=== PATIENT | female | born 1945 | race Caucasian/White ===

== ENCOUNTER 2019-10-23 10:11 | Outpatient (CLI) | payer OTHER, SELFPAY ==
--- NOTE | ~2019-10-23 | MM_ITS ---
EXAMINATION: MM screening [facility] w [facility] HISTORY: Screening mammogram TECHNIQUE: Craniocaudal and mediolateral oblique 3-D tomosynthesis images were obtained and synthetic 2-D images were generated. CAD analysis was submitted and interpreted. COMPARISON: Comparison to multiple prior studies sequentially, with oldest reviewed study dated 09/12. BREAST PARENCHYMAL COMPOSITION: There are scattered areas of fibroglandular density. FINDINGS: There is no evidence of suspicious mass, calcification, or architectural distortion to sugg est malignancy in either breast. There has been no suspicious interval change. IMPRESSION: 1. No mammographic evidence of malignancy. 2. Recommend routine screening mammography in one year. BI-RADS Category 1: Negative Reviewed, dictated and finalized at location A.
== END 2019-10-23 10:12 | disposition home or self-care (01) ==
LOC: ANHIMG 10:14
PROVIDERS: PCP Emergency Medicine; Visit Provider Emergency Medicine
DX: Z12.31 Encounter for screening mammogram for malignant neoplasm of breast (principal)
CPT/HCPCS: 77063; 77067

== ENCOUNTER 2019-12-12 08:08 | Outpatient (CLI) | payer OTHER, SELFPAY ==
[2019-12-12 08:44] LABS: Alanine Aminotransferase 15 U/L (4-35); Albumin Level 4.2 g/dL (3.5-5.1); Alkaline Phosphatase 111 U/L (38-126); Aspartate Amino Transferase 19 U/L (14-36); Bilirubin,Total 0.6 mg/dL (0.2-1.3); Blood Urea Nitrogen 17 mg/dL (7-17); Calcium 9.3 mg/dL (8.4-10.2); Carbon Dioxide 30 mmol/L (22-30); Chloride 99 mmol/L (98-107); Cholesterol 172 mg/dL (0-200); Estimated Glomerular Filt Rate 55; Glucose 114 mg/dL (65-105); HDL Direct 47 mg/dL; Potassium 3.4 mmol/L (3.4-5.0); Sodium 136 mmol/L (137-145); Triglycerides 133 mg/dL (<150)
[2019-12-12 08:55] LABS: LDL Cholesterol Direct 93 mg/dL
[2019-12-16 13:26] LABS: Vitamin D 1,25 (OH)2 Total 23 pg/mL (18-72); Vitamin D2 1,25 (OH)2 <8 pg/mL; Vitamin D3 1,25 (OH)2 23 pg/mL
== END 2019-12-12 08:09 | disposition home or self-care (01) ==
PROVIDERS: PCP Emergency Medicine; Visit Provider Emergency Medicine
DX: E78.5 Hyperlipidemia, unspecified (principal); E55.9 Vitamin D deficiency, unspecified
CPT/HCPCS: 36415; 80053; 80061; 82652

== ENCOUNTER 2020-05-23 19:03 | Inpatient (IN) | payer OTHER, SELFPAY ==
[2020-05-23] VITALS (27 sets, daily range): BP systolic 92–140; BP diastolic 44–65; PULSE 70–95; RESP 17–24; TEMP 36.4–38.8; O2SAT 89–100; BMI 38.4
--- NOTE | ~2020-05-23 | XR_ITS ---
EXAMINATION: XR chest 1V portable DATE: 05/23/2020 19:56 INDICATION: COVID positive presenting with fever and weakness TECHNIQUE: frontal view of the chest was obtained. COMPARISON: Chest radiograph dated 10/31/2013 FINDINGS: Patchy airspace opacities throughout the left lung concerning for pneumonia. No definitive airspace o pacities in the right lung. No pleural effusion or pneumothorax. The cardiomediastinal silhouette is within normal limits for AP technique. Visualized bones and soft tissues are unremarkable. IMPRESSION: 1. Airspace opacities throughout the left lung concerning for pneumonia. Reviewed, dictated and finalized at location A. [employer]
--- NOTE | ~2020-05-23 | CT_ITS ---
EXAMINATION: CT brain wo con DATE: 05/24/2020 11:02 INDICATION: Syncope TECHNIQUE: Computed tomography (CT) of the head was performed without intravenous contrast. The dose- length product was 605.33 mGy-cm. Automated exposure control and iterative reconstruction technique w ere employed. COMPARISON: None FINDINGS: Generalized atrophy. There are scattered moderate periventricular and subcortical white mat ter changes, most likely related to small vessel ischemic disease (microangiopathy). No ventriculomeg juhi or midline shift. There is intracranial atherosclerosis. Midline sagittal images demonstrate a no rmal corpus callosum and craniovertebral junction. Scant mucosal thickening ethmoid sinuses. Mastoids are pneumatized. No depressed skull fractures. IMPRESSION: 1. No acute intracranial abnormality. 2: Chronic age-related findings. Reviewed, dictated and finalized at location A. FICATION OPERATOR
--- NOTE | 2020-05-23 19:28 | ECG_ITS ---
Measurements Intervals [place] Rate: 78 P: 36 ND: 171 QRS: -38 QRSD: 93 T: 6 QT: 376 QTc: 430 Interpretive Statements SINUS RHYTHM LEFT AXIS DEVIATION LOW QRS VOLTAGE IN LIMB LEADS BORDERLINE T WAVE ABNORMALITY- INFERIOR LEADS BASELINE WANDER- I, II, AVR, AVL BORDERLINE ECG Electronically Signed On 05-24-2020 7:37:30 ELECTRIC METER READER by Scott Rojo D.O.
--- NOTE | 2020-05-23 19:30 | ED.WEAKNESS ---
HPI - Weakness General Chief complaint: Weakness Stated complaint: weakness, possible covid Time Seen by Provider: 05/23/20 19:21 History of Present Illness HPI Narrative: Brought in by EMS from home for generalized weakness. She has been feeling ill for about the past 5 days. Symptoms include cough, SOB, fever, nausea, poor PO intake. She had outpatient COVID test collected, but n result yet. Today She has been confused and weak, She fell down and was not able to stand on her own. On review of the gart her COVID test did come back positive. Related Data Home Medications Medication Instructions Recorded Confirmed amlodipine 5 mg DAILY 05/23/20 05/24/20 Allergies Allergy/AdvReac Type Severity Reaction Status Date / Time No Known Allergies Allergy Unverified 11/10/18 07:43 Review of Systems Review of Systems: All systems reviewed & are unremarkable except as noted in HPI and below Constitutional: Constitutional: Reports chills, Reports fatigue, Reports fever(s) and Reports weakness ENT: Denies sore throat Cardiovascular: Cardiovascular: Denies chest pain Respiratory: Respiratory: Reports cough and Reports dyspnea Gastrointestinal: Gastrointestinal: Denies abdominal pain, Reports diarrhea and Reports nausea Genitourinary: Genitourinary: Denies hematuria and Denies dysuria Musculoskeletal: Musculoskeletal: Reports myalgias Neurologic: Reports dizziness, Reports syncope and Reports weakness PMFSH Past Medical History Medical History DJD (degenerative joint disease) GERD (gastroesophageal reflux disease) H/O: HTN (hypertension) HLD (hyperlipidemia) Vitamin D deficiency disease Family History Family History Sibling Patient's brother is in good health Mother Family history of Alzheimer's disease, Onset Age: 82 Patient's mother is Father Patient's father is Acute myocardial infarction, Onset Age: 75 Social History Social History Smoking packs per day: 1 Smoking cigarettes per day: 20.0 Years smoked: 13 Smoking pack-years: 13.00 Smoking status: Former smoker Tobacco type: cigarettes Smoking end date: 06/20/99 Alcohol intake: current Substance use: never Spiritual care concerns: No Exam Const: General: ill appearing Other: Mild distress HENMT: Head: no contusions Ears: external ears normal Mouth: Yes dry mucous membranes Eyes: Pupils: Equal, round and reactive pupils present EOM: EOMs intact bilaterally Neck: Neck: normal visual inspection Resp: Effort & Inspection: tachypneic Auscultation: crackles Cardio: Rate: tachycardic Rhythm: regular rhythm GI: GI Palp: Yes Soft to palpation and No Tenderness to palpation present (GI) Skin: General skin exam: normal color Neuro: General: patient oriented x3, moves all extremities and CN's II-XI intact bilaterally Speech: normal speech Other: Listless Extrem: General: normal to inspection and no edema Course Vital Signs Vital signs: Vital Signs Pulse Rate 95 05/23/20 19:16 Respiratory Rate 20 05/23/20 19:16 Blood Pressure 109/45 L 05/23/20 19:16 Pulse Oximetry 91 05/23/20 19:16 Temperature 36.8 C 05/25/20 01:10 Pulse Rate 83 05/25/20 01:10 Respiratory Rate 20 05/25/20 01:10 Blood Pressure 120/63 05/25/20 01:10 Pulse Oximetry 92 05/25/20 01:10 MDM - Weakness MDM Narrative Medical decision making narrative: Generalized weakness Differential Diagnosis Differential diagnosis: Likely sepsis, dehydration and other (COVID-19) Medical Records Attestation: I reviewed the patient's medical records. Lab Data Attestation: I reviewed the patient's lab results. Result diagrams: 05/24/20 05:22 05/24/20 05:22 Labs: Lab Results 05/23/20 1
[2020-05-23] MEDS: SODIUM CHLORIDE 0.9% IV 1,000 ML 999 ML IV CONT (19:51)
[2020-05-23] MEDS: DEXAMETHASONE SOD PHOS INJ 4 MG/ML VIAL 10 MG IV PUSH (19:52)
[2020-05-23 20:10] LABS: Basophils Percent Auto 0.2 % (0.2-1.2); Hematocrit 34.9 % (37.0-47.0); Hemoglobin 11.9 g/dL (12.0-15.0); Immature Granulocyte Absolute 0.02 K/mm3 (0.00-0.031); Immature Granulocyte Percent A 0.4 % (0-0.5); Lymphocytes Percent Auto 11.6 % (18.3-44.2); Mean Corpuscular HGB Conc 34.1 g/dl (32-36); Mean Corpuscular Hemoglobin 29.6 pg (26-34); Mean Corpuscular Volume 86.8 fl (80-100); Mean Platelet Volume 9.3 fl (7.4-10.4); Monocytes Absolute Auto 0.6 K/mm3 (0.1-0.6); Monocytes Percent Auto 11.2 % (2.6-8.5); Neutrophils Percent Auto 76.6 % (45.5-73.1); Platelet Count Result 335 k/mm3 (150-375); Red Blood Count 4.02 M/mm3 (4.2-5.4); Red Cell Distribution Width 12.5 % (11.5-14.5); White Blood Count 5.2 K/mm3 (4.5-10.0)
[2020-05-23 20:20] LABS: INR 0.9; Prothrombin Time 13.2 Seconds (11.1-14.7)
[2020-05-23 20:21] LABS: Partial Thromboplastin Time 27.1 SECONDS (22.3-36.8)
[2020-05-23 20:23] LABS: Lactic Acid Reflex 1.7 mmol/L (0.7-2.1)
[2020-05-23 20:26] LABS: Alanine Aminotransferase 26 U/L (4-35); Albumin Level 3.7 g/dL (3.5-5.1); Alkaline Phosphatase 80 U/L (38-126); Anion Gap 10 mmol/L (8-16); Aspartate Amino Transferase 64 U/L (14-36); Bilirubin,Total 0.6 mg/dL (0.2-1.3); Blood Urea Nitrogen 41 mg/dL (7-17); Calcium 8.4 mg/dL (8.4-10.2); Carbon Dioxide 25 mmol/L (22-30); Chloride 96 mmol/L (98-107); Estimated CRCL calculation 23 ml/min; Estimated Glomerular Filt Rate 26; Glucose 119 mg/dL (65-105); Potassium 3.3 mmol/L (3.4-5.0); Sodium 131 mmol/L (137-145)
--- NOTE | 2020-05-23 20:43 | PC.NURSE ---
network technical analyst in room now for urine specimen and EKG.
--- NOTE | 2020-05-23 21:37 | PC.NURSE ---
resting on stretcher. daughter at bedside. on quality assurance monitor body. denies needs. will repeat bladder scan and plan for straight cath. patient initially refused and bladder scan did not show any urinary retention. daughter agrees.
--- NOTE | 2020-05-23 21:46 | PC.NURSE ---
global technical writer in room. patient placed on bedpan. alert. daughter updated and leaving for the night.
[2020-05-23] MEDS: LACTATED RINGERS 1,000 ML 100 ML IV CONT (21:55)
--- NOTE | 2020-05-23 21:55 | PC.NURSE ---
patient unable to void on bedpan. waiting for bed assignment upstairs. will attempt straight cath.
[2020-05-23] MEDS: LIDOCAINE HCL 2% GEL UROJET 10 ML PKG (22:11)
[2020-05-23] MEDS: LIDOCAINE HCL 2% GEL UROJET 10 ML PKG MUCOUS MEM (22:12)
--- NOTE | 2020-05-23 22:21 | PM.IMHP ---
H&P: HPI History of Present Illness Date/Time: 05/23/20 22:21 Chief complaint: COVID-19 pneumonia Narrative: This is a 75 year old female with known history of HTN and hyperlipidemia who presented to the hospital tonight with her daughter secondary to increased weakness and decreased PO intake of food and fluid over the past few days. The patient is known to have tested positive for COVID-19 two days ago. The patient has had a sporadic cough, intermittent fevers, and diarrhea. She denies any nausea or vomiting. Her daughter reports that as they were trying to get the patient into their car today to bring her to the hospital she went limp and passed out for a moment. They deny any head injury. She does have a history of passing out before. Tonight in the the ER the patient was found to have mild hypokalemia and acute kidney injury. She was treated with IV fluids. Urinalysis is pending. No other complaints. The patient is on room air and saturating well in no acute distress. Review of Systems Review of Systems: All systems reviewed & are unremarkable except as noted in HPI and below PMFSH Past Medical History Medical History DJD (degenerative joint disease) GERD (gastroesophageal reflux disease) H/O: HTN (hypertension) HLD (hyperlipidemia) Vitamin D deficiency disease Family History Family History Sibling Patient's brother is in good health Mother Family history of Alzheimer's disease, Onset Age: 82 Patient's mother is Father Patient's father is Acute myocardial infarction, Onset Age: 75 Social History Social History Smoking packs per day: 1 Smoking cigarettes per day: 20.0 Years smoked: 13 Smoking pack-years: 13.00 Smoking status: Former smoker Tobacco type: cigarettes Smoking end date: 06/20/99 Alcohol intake: current Substance use: never Spiritual care concerns: No Meds Home Medications and Allergies Home Medications Medication Instructions Recorded Confirmed Type famotidine 40 mg tablet 40 mg PO DAILY #30 tablet 06/25/19 05/24/20 Rx atorvastatin 40 mg tablet 40 mg PO DAILY #90 tablet 11/20/19 05/24/20 Rx lisinopril 20 1 tablet PO DAILY #90 tablet 11/20/19 05/24/20 Rx mg-hydrochlorothiazide 25 mg tablet triamcinolone acetonide 0.5 % 1 applic TOPICAL DAILY #15 gm 12/11/19 05/24/20 Rx topical cream fluticasone propionate 50 1 spray NASAL DAILY #16 ml 01/04/20 05/24/20 Rx mcg/actuation nasal spray,suspension amlodipine 5 mg DAILY 05/23/20 05/24/20 History albuterol sulfate [Proventil HFA] 2 puff INHALATION Q6H #6.7 g 05/26/20 Rx benzonatate 100 mg PO TID PRN #30 cap 05/26/20 05/24/20 Rx Allergies Allergy/AdvReac Type Severity Reaction Status Date / Time No Known Allergies Allergy Unverified 11/10/18 07:43 Vital Signs Vital Signs - 24 hr 05/23/20 19:16 05/23/20 19:17 05/23/20 19:20 Temperature 38.8 C H Pulse Rate 95 94 90 Respiratory Rate 20 23 H 22 H Blood Pressure 109/45 L 92/49 L Pulse Oximetry 91 93 05/23/20 19:41 05/23/20 19:42 05/23/20 19:45 Temperature Pulse Rate 88 89 92 Respiratory Rate 24 H 22 H Blood Pressure Pulse Oximetry 89 L 92 05/23/20 19:46 05/23/20 20:08 05/23/20 20:15 Temperature Pulse Rate 89 87 82 Respiratory Rate 21 H 20 21 H Blood Pressure 103/44 L Pulse Oximetry 94 96 100 05/23/20 20:42 05/23/20 20:45 05/23/20 20:46 Temperature Pulse Rate 80 79 80 Respiratory Rate 20 19 19 Blood Pressure 121/61 Pulse Oximetry 97 93 93 05/23/20 21:28 05/23/20 21:30 05/23/20 21:31 Temperature Pulse Rate 74 74 75 Respiratory Rate 18 19 18 Blood Pressure 118/65 Pulse Oximetry 05/23/20 21:32 05/23/20 21:45 05/23/20 21:46 Temperature Pulse Rate 75 75 74 Respiratory Rate 18
[2020-05-23 22:29] LABS: Add Urine Microscopic? YES; Appearance Urine Cloudy (Clear); Bacteria Urine Trace /hpf; Bilirubin Urine Negative (Negative); Blood Urine 2+ (Negative); Color Urine Yellow (Yellow); Glucose Urine UA Negative (Negative); Hyaline Casts Urine 15-19 /lpf; Ketones Urine Negative (Negative); Leukocyte Esterase Ur Negative LEU/UL (Negative); Mucus Urine Rare /lpf; Nitrate Urine Negative (Negative); Protein Urine 1+ mg/dL (Negative); RBC Urine 0-2 /hpf (0-2); Specific Grav Ur 1.017 (1.001-1.035); Squamous Epithelial Cell Urine Occasional /hpf (Few); Urobilinogen Urine Negative mg/dL (<2.0)
--- NOTE | 2020-05-23 22:35 | PC.NURSE ---
SBAR faxed and tubed.
--- NOTE | 2020-05-23 23:54 | ADMGEN ---
This patient, Boston Sewell, was admitted to [facility] Surg Room 306-01. Patient/family oriented to hospital policies and general routines including ID bracelet, bed and alarms, visiting hours, pain management, procedures, bathroom and other care routines, personal items, smoking policy, room service/diet, and visiting hours. Information on how to activate the Rapid Response Team has been discussed. Patient/Family are encouraged to report perceived risks to care and to ask questions if they do not understand what they are told or what they should do.
[2020-05-24] VITALS (12 sets, daily range): BP systolic 109–126; BP diastolic 54–68; PULSE 0–89; RESP 16–20; TEMP 36–36.8; O2SAT 92–97
[2020-05-24] MEDS: ACETAMINOPHEN 325 MG TABLET 650 MG PO (05:09)
[2020-05-24 06:46] LABS: Basophils Percent Auto 0.3 % (0.2-1.2); Hematocrit 35.8 % (37.0-47.0); Immature Granulocyte Absolute 0.02 K/mm3 (0.00-0.031); Immature Granulocyte Percent A 0.5 % (0-0.5); Lymphocytes Absolute Auto 0.53 K/mm3 (0.9-3.2); Lymphocytes Percent Auto 14.3 % (18.3-44.2); Mean Corpuscular HGB Conc 33.5 g/dl (32-36); Mean Corpuscular Hemoglobin 30.2 pg (26-34); Mean Corpuscular Volume 89.9 fl (80-100); Mean Platelet Volume 9.4 fl (7.4-10.4); Monocytes Absolute Auto 0.2 K/mm3 (0.1-0.6); Monocytes Percent Auto 5.1 % (2.6-8.5); Neutrophils Percent Auto 79.8 % (45.5-73.1); Platelet Count Result 316 k/mm3 (150-375); Red Blood Count 3.98 M/mm3 (4.2-5.4); Red Cell Distribution Width 12.5 % (11.5-14.5); White Blood Count 3.7 K/mm3 (4.5-10.0)
[2020-05-24 07:06] LABS: Anion Gap 12 mmol/L (8-16); Blood Urea Nitrogen 39 mg/dL (7-17); Calcium 8.2 mg/dL (8.4-10.2); Carbon Dioxide 21 mmol/L (22-30); Chloride 101 mmol/L (98-107); Estimated CRCL calculation 36 ml/min; Estimated Glomerular Filt Rate 37; Glucose 131 mg/dL (65-105); Magnesium 2.2 mg/dL (1.6-2.3); Potassium 3.1 mmol/L (3.4-5.0); Sodium 134 mmol/L (137-145)
[2020-05-24 08:33] LABS: Alanine Aminotransferase 27 U/L (4-35); Albumin Level 3.5 g/dL (3.5-5.1); Alkaline Phosphatase 72 U/L (38-126); Aspartate Amino Transferase 65 U/L (14-36); Bilirubin,Total 0.4 mg/dL (0.2-1.3)
[2020-05-24] MEDS: POTASSIUM CHLORIDE 20 MEQ PACKET (FOR LIQUID) 40 MEQ PO (08:37)
[2020-05-24] MEDS: ENOXAPARIN 30 MG/0.3 ML SYRINGE SUB-Q (08:39)
[2020-05-24] MEDS: REMDESIVIR 200 MG/NS 250 ML 200 MG/250 ML BAG 250 MG IVPB (08:42)
[2020-05-24] MEDS: ALBUTEROL SULFATE (*SP) AEROSOL 1 PUFF 2 PUFF INHALATION ×4 (09:30→20:05)
[2020-05-24] MEDS: amLODIPine BESYLATE 5 MG TABLET BY MOUTH (11:10)
[2020-05-24] MEDS: BENZONATATE 100 MG CAPSULE PO ×3 (11:10→17:45)
[2020-05-24] MEDS: DEXAMETHASONE SOD PHOS INJ 4 MG/ML VIAL 6 MG IV PUSH (11:10)
[2020-05-24] MEDS: FAMOTIDINE 20 MG TABLET 40 MG PO (11:10)
--- NOTE | 2020-05-24 13:34 | P.PNIM_ITS ---
Progress Note: A&P Assessment and Plan (1) Pneumonia due to COVID-19 virus: Code(s): U07.1 - COVID-19; J12.89 - Other viral pneumonia Status: Acute Assessment and Plan: COVID positive on 05/21. Appears symptoms started within this past week. She started requiring oxygen overnight; currently on 1L O2 NC. Started on remdesivir on 05/24. Started on Decadron 05/23. Patient feels better today * Continue Remdesivir (day 06/24) * Continue Decadron (day 07/30) * Supportive care with tylenol for fevers, benzonatate for cough, albuterol inhaler prn, IS * Supplemental O2 prn; wean as tolerated * Monitor for improvement * Consider home O2 eval pending clinical course (2) Acute respiratory failure with hypoxia: Code(s): J96.01 - Acute respiratory failure with hypoxia Status: Acute Assessment and Plan: Likely due to above. Initially on 2L O2 overnight; now weaned to 1L today * Continue treatment as detailed above * Wean as tolerated; consider home O2 eval * Monitor (3) Acute renal failure: Qualifiers: Acute renal failure type: unspecified Qualified Code(s): N17.9 - Acute kidney failure, unspecified Code(s): N17.9 - Acute kidney failure, unspecified Status: Acute Assessment and Plan: Cr initially 1.90; has improved to 1.40 this morning. Likely prerenal from dehydration from poor PO intake this past week * Saline lock after this bag of NS * Encourage PO intake * Monitor BMP daily * avoid nephrotoxic agents, renally dose if applicable (4) Acute dehydration: Code(s): E86.0 - Dehydration Status: Acute Assessment and Plan: Likely due to poor PO intake from current COVID infection * Will d/c IVF after current bag * Encourage PO intake * Monitor PO intake (5) Syncope and collapse: Code(s): R55 - Syncope and collapse Status: Acute Assessment and Plan: CT unremarkable. Likely due to dehydration. No apparent associated symptoms surrounding collapse other than dizziness * Telemetry * Fall precautions. * Monitor (6) Hypokalemia: Code(s): E87.6 - Hypokalemia Status: Acute Assessment and Plan: K 3.1 this morning * KCL replacement PO. * Monitor serum potassium. (7) H/O: HTN (hypertension): Code(s): Z86.79 - Personal history of other diseases of the circulatory system Status: Acute Assessment and Plan: BP 120s sys this afternoon * Monitor blood pressure. * Continue home antihypertensives. (8) HLD (hyperlipidemia): Qualifiers: Hyperlipidemia type: mixed hyperlipidemia Qualified Code(s): E78.2 - Mixed hyperlipidemia Code(s): E78.5 - Hyperlipidemia, unspecified Status: Acute Assessment and Plan: * continue atorvastatin PO. Subjective Date/time seen: 05/24/20 13:34 Interval history: Patient is a 75 yo F with known history of HTN and hyperlipidemia who is here for COVID pneumonia and acute respiratory failure with hypoxia likely due to same. Patient states she feels 75% better today. She notes her breathing is a bit better today. She occasionally has a dry cough. She had some subjective fevers sometime earlier this week. Notes loss of smell about a week ago. She has a bit of a poor appetite recently but this has improved. Note
--- NOTE | 2020-05-24 13:34 | PM.IMPN ---
Progress Note: A&P Assessment and Plan (1) Pneumonia due to COVID-19 virus: Code(s): U07.1 - COVID-19; J12.89 - Other viral pneumonia Status: Acute Assessment and Plan: COVID positive on 05/21. Appears symptoms started within this past week. She started requiring oxygen overnight; currently on 1L O2 NC. Started on remdesivir on 05/24. Started on Decadron 05/23. Patient feels better today Continue Remdesivir (day 06/24) Continue Decadron (day 07/30) Supportive care with tylenol for fevers, benzonatate for cough, albuterol inhaler prn, IS Supplemental O2 prn; wean as tolerated Monitor for improvement Consider home O2 eval pending clinical course (2) Acute respiratory failure with hypoxia: Code(s): J96.01 - Acute respiratory failure with hypoxia Status: Acute Assessment and Plan: Likely due to above. Initially on 2L O2 overnight; now weaned to 1L today Continue treatment as detailed above Wean as tolerated; consider home O2 eval Monitor (3) Acute renal failure: Qualifiers: Acute renal failure type: unspecified Qualified Code(s): N17.9 - Acute kidney failure, unspecified Code(s): N17.9 - Acute kidney failure, unspecified Status: Acute Assessment and Plan: Cr initially 1.90; has improved to 1.40 this morning. Likely prerenal from dehydration from poor PO intake this past week Saline lock after this bag of NS Encourage PO intake Monitor BMP daily avoid nephrotoxic agents, renally dose if applicable (4) Acute dehydration: Code(s): E86.0 - Dehydration Status: Acute Assessment and Plan: Likely due to poor PO intake from current COVID infection Will d/c IVF after current bag Encourage PO intake Monitor PO intake (5) Syncope and collapse: Code(s): R55 - Syncope and collapse Status: Acute Assessment and Plan: CT unremarkable. Likely due to dehydration. No apparent associated symptoms surrounding collapse other than dizziness Telemetry Fall precautions. Monitor (6) Hypokalemia: Code(s): E87.6 - Hypokalemia Status: Acute Assessment and Plan: K 3.1 this morning KCL replacement PO. Monitor serum potassium. (7) H/O: HTN (hypertension): Code(s): Z86.79 - Personal history of other diseases of the circulatory system Status: Acute Assessment and Plan: BP 120s sys this afternoon Monitor blood pressure. Continue home antihypertensives. (8) HLD (hyperlipidemia): Qualifiers: Hyperlipidemia type: mixed hyperlipidemia Qualified Code(s): E78.2 - Mixed hyperlipidemia Code(s): E78.5 - Hyperlipidemia, unspecified Status: Acute Assessment and Plan: continue atorvastatin PO. Subjective Date/time seen: 05/24/20 13:34 Interval history: Patient is a 75 yo F with known history of HTN and hyperlipidemia who is here for COVID pneumonia and acute respiratory failure with hypoxia likely due to same. Patient states she feels 75% better today. She notes her breathing is a bit better today. She occasionally has a dry cough. She had some subjective fevers sometime earlier this week. Notes loss of smell about a week ago. She has a bit of a poor appetite recently but this has improved. Notes slight burning with urination. No other complaints. Denies current subjective f/c/s headaches, current dizziness, lightheadedness, cp/palpitations, n/v/d/c, abd pain, changes in BMs, hematuria, cloudy urine, calf pain/swelling. Review of Systems Review of Systems: All systems reviewed & are unremarkable except as noted in HPI and below Exam Narrative: Exam Narrative: General: Patient resting supine in bed
[2020-05-25] VITALS (9 sets, daily range): BP systolic 106–125; BP diastolic 43–63; PULSE 67–87; RESP 16–20; TEMP 36.2–36.8; O2SAT 92–97
[2020-05-25 06:10] LABS: Basophils Percent Auto 0.1 % (0.2-1.2); Hematocrit 34.2 % (37.0-47.0); Hemoglobin 11.6 g/dL (12.0-15.0); Immature Granulocyte Percent A 1.1 % (0-0.5); Lymphocytes Absolute Auto 0.55 K/mm3 (0.9-3.2); Lymphocytes Percent Auto 5.9 % (18.3-44.2); Mean Corpuscular HGB Conc 33.9 g/dl (32-36); Mean Corpuscular Hemoglobin 29.7 pg (26-34); Mean Corpuscular Volume 87.7 fl (80-100); Mean Platelet Volume 9.2 fl (7.4-10.4); Monocytes Absolute Auto 0.7 K/mm3 (0.1-0.6); Monocytes Percent Auto 7.9 % (2.6-8.5); Neutrophils Absolute Auto 7.9 K/mm3 (1.3-6.7); Platelet Count Result 375 k/mm3 (150-375); Red Cell Distribution Width 12.6 % (11.5-14.5); White Blood Count 9.3 K/mm3 (4.5-10.0)
[2020-05-25 06:30] LABS: Alanine Aminotransferase 25 U/L (4-35); Albumin Level 3.3 g/dL (3.5-5.1); Alkaline Phosphatase 69 U/L (38-126); Anion Gap 6 mmol/L (8-16); Aspartate Amino Transferase 52 U/L (14-36); Bilirubin,Total 0.5 mg/dL (0.2-1.3); Blood Urea Nitrogen 41 mg/dL (7-17); CRP 5.8 mg/dL (<1.0); Calcium 8.5 mg/dL (8.4-10.2); Carbon Dioxide 25 mmol/L (22-30); Chloride 104 mmol/L (98-107); Estimated CRCL calculation 45 ml/min; Estimated Glomerular Filt Rate 49; Glucose 110 mg/dL (65-105); Lactate Dehydrogenase 704 U/L (313-618); Potassium 3.3 mmol/L (3.4-5.0); Sodium 135 mmol/L (137-145)
[2020-05-25 07:35] LABS: Thyroid Stimulating Hormone Reflex 0.943 uIU/mL (0.465-4.68)
--- NOTE | 2020-05-25 07:41 | PC.NURSE ---
05/24/2020 AT 2235 I SPOKE WITH KAYLAH VILLALOBOS/HOSPITALIST AND REPORTED POSITIVE BLOOD CULTURE WITH GRAM POSITIVE COCCI IN CLUSTERS FACE TO FACE. NO NEW ORDERS RECEIVED. SENSITIVITY PENDING.
[2020-05-25] MEDS: ALBUTEROL SULFATE (*SP) AEROSOL 1 PUFF 2 PUFF INHALATION ×4 (07:43→19:41)
[2020-05-25] MEDS: REMDESIVIR 100 MG/NS 250 ML 100 MG/250 ML BAG 250 MG IVPB (09:03)
[2020-05-25] MEDS: FAMOTIDINE 20 MG TABLET 40 MG PO (09:04)
[2020-05-25] MEDS: ENOXAPARIN 30 MG/0.3 ML SYRINGE SUB-Q (09:04)
[2020-05-25] MEDS: DEXAMETHASONE SOD PHOS INJ 4 MG/ML VIAL 6 MG IV PUSH (09:04)
[2020-05-25] MEDS: ATORVASTATIN 40 MG TABLET PO (09:04)
[2020-05-25] MEDS: BENZONATATE 100 MG CAPSULE PO ×3 (09:04→17:32)
[2020-05-25] MEDS: POTASSIUM CHLORIDE 20 MEQ PACKET (FOR LIQUID) 40 MEQ PO (09:10)
--- NOTE | 2020-05-25 14:45 | PM.IMPN ---
Progress Note: A&P Assessment and Plan (1) Pneumonia due to COVID-19 virus: Code(s): U07.1 - COVID-19; J12.89 - Other viral pneumonia Status: Acute Assessment and Plan: COVID positive on 05/21. Appears symptoms started within this past week. She continues to require 1L O2 NC, although EMR states RA - this is incorrect per nursing. Started on remdesivir on 05/24. Started on Decadron 05/23. Patient feels better today Continue Remdesivir (day 07/25) Continue Decadron (day 08/27) Supportive care with tylenol for fevers, benzonatate for cough, albuterol inhaler prn, IS Supplemental O2 prn; wean as tolerated ' Switch to regular diet to improve appetite Monitor for improvement Consider home O2 eval pending clinical course, likely tomorrow (2) Acute respiratory failure with hypoxia: Code(s): J96.01 - Acute respiratory failure with hypoxia Status: Acute Assessment and Plan: Likely due to above. Initially on 2L O2 05/23; stable on 1L today Continue treatment as detailed above Wean as tolerated; consider home O2 eval Monitor (3) Acute renal failure: Qualifiers: Acute renal failure type: unspecified Qualified Code(s): N17.9 - Acute kidney failure, unspecified Code(s): N17.9 - Acute kidney failure, unspecified Status: Acute Assessment and Plan: Cr initially 1.90; has improved to 1.10 this morning. Likely prerenal from dehydration from poor PO intake this past week Encourage PO intake Monitor BMP daily avoid nephrotoxic agents, renally dose if applicable (4) Acute dehydration: Code(s): E86.0 - Dehydration Status: Acute Assessment and Plan: Likely due to poor PO intake from current COVID infection Encourage PO intake Monitor PO intake (5) Syncope and collapse: Code(s): R55 - Syncope and collapse Status: Acute Assessment and Plan: CT unremarkable. Likely due to dehydration. No apparent associated symptoms surrounding collapse other than dizziness. No alarms on tele overnight Telemetry d/c Fall precautions. Monitor (6) Hypokalemia: Code(s): E87.6 - Hypokalemia Status: Acute Assessment and Plan: K 3.3 this morning. replaced. Likely 2/2 poor oral intake Monitor serum potassium Replace as needed (7) H/O: HTN (hypertension): Code(s): Z86.79 - Personal history of other diseases of the circulatory system Status: Acute Assessment and Plan: BP 120s sys this afternoon Monitor blood pressure. Continue home antihypertensives. (8) HLD (hyperlipidemia): Qualifiers: Hyperlipidemia type: mixed hyperlipidemia Qualified Code(s): E78.2 - Mixed hyperlipidemia Code(s): E78.5 - Hyperlipidemia, unspecified Status: Acute Assessment and Plan: continue atorvastatin PO. Subjective Date/time seen: 05/25/20 14:45 Interval history: Patient is a 75 yo F with known history of HTN and hyperlipidemia who is here for COVID pneumonia and acute respiratory failure with hypoxia likely due to same. Patient states she feels okay today but states the food tastes terrible and will not eat anything from the menu. In regards to her medical complaints, she notes her breathing is a bit better today, but still requiring 1L O2 (charting states room air, but per nursing, she has been on 1L since yesterday. She still occasionally has a dry cough. Dysuria has resolved. No other complaints. She thinks she did well with therapy today. Denies current subjective f/c/s, headaches, current dizziness, lightheadedness, cp/palpitations, n/v/d/c, abd pain, changes in BMs, hematuria, cloudy urine, calf p
[2020-05-26] VITALS: BP 118/50; PULSE 70; RESP 20; TEMP 37.1; O2SAT 94
[2020-05-26 04:00] VITALS: BP 113/49; PULSE 65; RESP 20; TEMP 36.8; O2SAT 96
[2020-05-26 06:53] LABS: Hematocrit 32.5 % (37.0-47.0); Hemoglobin 11.2 g/dL (12.0-15.0); Immature Granulocyte Absolute 0.07 K/mm3 (0.00-0.031); Immature Granulocyte Percent A 1.5 % (0-0.5); Lymphocytes Absolute Auto 0.37 K/mm3 (0.9-3.2); Lymphocytes Percent Auto 7.7 % (18.3-44.2); Mean Corpuscular HGB Conc 34.5 g/dl (32-36); Mean Corpuscular Hemoglobin 30.9 pg (26-34); Mean Corpuscular Volume 89.8 fl (80-100); Mean Platelet Volume 9.3 fl (7.4-10.4); Monocytes Absolute Auto 0.5 K/mm3 (0.1-0.6); Monocytes Percent Auto 9.4 % (2.6-8.5); Neutrophils Absolute Auto 3.9 K/mm3 (1.3-6.7); Neutrophils Percent Auto 81.4 % (45.5-73.1); Platelet Count Result 371 k/mm3 (150-375); Red Blood Count 3.62 M/mm3 (4.2-5.4); Red Cell Distribution Width 12.8 % (11.5-14.5); White Blood Count 4.8 K/mm3 (4.5-10.0)
[2020-05-26 07:22] LABS: Alanine Aminotransferase 22 U/L (4-35); Albumin Level 2.9 g/dL (3.5-5.1); Alkaline Phosphatase 66 U/L (38-126); Anion Gap 5 mmol/L (8-16); Aspartate Amino Transferase 41 U/L (14-36); Bilirubin,Total 0.4 mg/dL (0.2-1.3); Blood Urea Nitrogen 36 mg/dL (7-17); Calcium 8.4 mg/dL (8.4-10.2); Carbon Dioxide 25 mmol/L (22-30); Chloride 107 mmol/L (98-107); Estimated CRCL calculation 55 ml/min; Estimated Glomerular Filt Rate > 60; Glucose 142 mg/dL (65-105); Potassium 3.4 mmol/L (3.4-5.0); Sodium 137 mmol/L (137-145)
[2020-05-26 08:00] VITALS: BP 133/63; PULSE 73; RESP 18; TEMP 37.1; O2SAT 91
[2020-05-26] MEDS: ALBUTEROL SULFATE (*SP) AEROSOL 1 PUFF 2 PUFF INHALATION ×2 (09:24→12:30)
[2020-05-26] MEDS: FAMOTIDINE 20 MG TABLET 40 MG PO (09:41)
[2020-05-26] MEDS: BENZONATATE 100 MG CAPSULE PO ×2 (09:41→12:07)
[2020-05-26] MEDS: ATORVASTATIN 40 MG TABLET PO (09:41)
[2020-05-26] MEDS: ENOXAPARIN 30 MG/0.3 ML SYRINGE SUB-Q (09:42)
[2020-05-26] MEDS: DEXAMETHASONE SOD PHOS INJ 4 MG/ML VIAL 6 MG IV PUSH (09:43)
[2020-05-26] MEDS: POTASSIUM CHLORIDE 20 MEQ PACKET (FOR LIQUID) 40 MEQ PO (09:46)
[2020-05-26 10:23] VITALS: O2SAT 92
[2020-05-26] MEDS: REMDESIVIR 100 MG/NS 250 ML 100 MG/250 ML BAG 250 MG IVPB (10:28)
[2020-05-26 11:33] VITALS: O2SAT 91
[2020-05-26 12:00] VITALS: BP 139/56; PULSE 73; RESP 18; TEMP 36.8; O2SAT 93
--- NOTE | 2020-05-26 16:24 | PM.DS ---
DS: Admitting Diagnosis Admitting Diagnosis Admitting Diagnosis: COVID-19 pneumonia DS: Discharge Diagnosis Discharge Diagnosis (1) Pneumonia due to COVID-19 virus: Code(s): U07.1 - COVID-19; J12.89 - Other viral pneumonia Status: Acute Assessment and Plan: COVID positive on 05/21. Appears symptoms started within this past week. She was weaned to RA this morning and last O2 sat in mid 90s this afternoon. Patient eager to be discharged. Started on remdesivir on 05/24. Started on Decadron 05/23. Patient feels better today Remdesivir x 3 days Decadron x 4 days Supportive care with tylenol for fevers, benzonatate for cough, albuterol inhaler prn, IS Advised purchasing a pulse oximeter d/c today F/u with PCP in 1 week (2) Acute respiratory failure with hypoxia: Code(s): J96.01 - Acute respiratory failure with hypoxia Status: Acute Assessment and Plan: Likely due to above. Initially on 2L O2 05/23; Weaned to RA this morning and maintaining adequate saturations this morning Continue treatment as detailed above (3) Acute renal failure: Qualifiers: Acute renal failure type: unspecified Qualified Code(s): N17.9 - Acute kidney failure, unspecified Code(s): N17.9 - Acute kidney failure, unspecified Status: Acute Assessment and Plan: Cr initially 1.90; has improved to 0.90 this morning. Likely prerenal from dehydration from poor PO intake this past week Encourage PO intake f/u with pcp (4) Acute dehydration: Code(s): E86.0 - Dehydration Status: Acute Assessment and Plan: Likely due to poor PO intake from current COVID infection Encourage PO intake (5) Syncope and collapse: Code(s): R55 - Syncope and collapse Status: Acute Assessment and Plan: CT unremarkable. Likely due to dehydration. No apparent associated symptoms surrounding collapse other than dizziness. No alarms on tele overnight Fall precautions during stay (6) Hypokalemia: Code(s): E87.6 - Hypokalemia Status: Acute Assessment and Plan: K 3.4 this morning. replaced. Likely 2/2 poor oral intake f/u with PCP (7) H/O: HTN (hypertension): Code(s): Z86.79 - Personal history of other diseases of the circulatory system Status: Acute Assessment and Plan: BP 130s sys this afternoon Continue home antihypertensives. (8) HLD (hyperlipidemia): Qualifiers: Hyperlipidemia type: mixed hyperlipidemia Qualified Code(s): E78.2 - Mixed hyperlipidemia Code(s): E78.5 - Hyperlipidemia, unspecified Status: Acute Assessment and Plan: continue atorvastatin PO. DS: Summary Hospital Course Reason for hospitalization: COVID PNA, Acute respiratory failure with hypoxia Hospital Course: Date of arrival: 05/23/20 Date of discharge: 05/26/20 Patient is a 75 yo F with known history of HTN and hyperlipidemia who presented to the ED on 05/23 from home secondary to increased weakness and decreased PO intake of food and fluid over the past few days. Patient was found to have mild hypokalemia and PASCUAL likely secondary to poor PO intake. She was given IV fluids. UA was suggestive of UTI, but UCx was negative. BCx came back with one growing caog neg staph; likely contaminate. Patient was swabbed for COVID as she had exposure. CXR demonstrated airspace opacities concerning for pneumonia. Patient admitted under this setting. Please see H&P for further details. Patient was admitted to the hospitalist service for further management/treatment. COVID positive returned positive and patient was hypoxic on RA and was placed on 2L O2 NC af
--- NOTE | 2020-05-26 17:26 | PCRCNOTE ---
pass administration time see next dose
--- NOTE | 2020-06-03 14:37 | PC.NURSE ---
Blood cx one of two bottles coag negative staff, ALONSO Nicole aware. States most likley contaminate.
== END 2020-05-26 16:43 | disposition home or self-care (01) | DRG 177 ==
LOC: ANHED 19:21 → ANH3MEDSUR 22:18
PROVIDERS: Physician Assistant; Admitting Provider Family Medicine; Emergency Provider Emergency Medicine; PCP Emergency Medicine; Visit Provider Family Medicine
DX: U07.1 COVID-19 (principal); J12.89 Other viral pneumonia; J96.01 Acute respiratory failure with hypoxia; N17.9 Acute kidney failure, unspecified; E86.0 Dehydration; R55 Syncope and collapse; E87.6 Hypokalemia; E78.2 Mixed hyperlipidemia; M19.90 Unspecified osteoarthritis, unspecified site; K21.9 Gastro-esophageal reflux disease without esophagitis; E55.9 Vitamin D deficiency, unspecified; Z86.79 Personal history of other diseases of the circulatory system; Z87.891 Personal history of nicotine dependence
CPT/HCPCS: 36415; 51701; 70450; 71045; 80048; 80053; 80076; 81001; 82728; 83605; 83615; 83735; 84443; 85025; 85610; 85730; 86140; 87040; 87077; 87086; 87186; 93005; 94640; 96365; 96366; 96367; 96372; 96375; 96376; 97116; 97162; 97165; 97530; 99285; A9270; G0378; J0131; J1100; J1650; J7030; J7120

== ENCOUNTER 2020-09-16 08:01 | Outpatient (CLI) | payer OTHER, SELFPAY ==
[2020-09-16 08:39] LABS: Alanine Aminotransferase 14 U/L (4-35); Albumin Level 4.1 g/dL (3.5-5.1); Alkaline Phosphatase 74 U/L (38-126); Anion Gap 6 mmol/L (8-16); Aspartate Amino Transferase 19 U/L (14-36); Bilirubin,Total 0.3 mg/dL (0.2-1.3); Blood Urea Nitrogen 14 mg/dL (7-17); Calcium 9.1 mg/dL (8.4-10.2); Carbon Dioxide 27 mmol/L (22-30); Chloride 105 mmol/L (98-107); Cholesterol 181 mg/dL (0-200); Estimated Glomerular Filt Rate 54; Glucose 105 mg/dL (65-105); HDL Direct 53 mg/dL; Potassium 3.8 mmol/L (3.4-5.0); Sodium 138 mmol/L (137-145); Triglycerides 126 mg/dL (<150)
[2020-09-16 08:40] LABS: Hemoglobin A1C 5.2 % (<5.7)
[2020-09-16 08:49] LABS: LDL Cholesterol Direct 87 mg/dL
== END 2020-09-16 08:02 | disposition home or self-care (01) ==
PROVIDERS: PCP Emergency Medicine; Visit Provider Emergency Medicine
DX: E78.5 Hyperlipidemia, unspecified (principal); E11.9 Type 2 diabetes mellitus without complications
CPT/HCPCS: 36415; 80053; 80061; 83036

== ENCOUNTER 2020-11-26 09:02 | Outpatient (CLI) | payer OTHER, SELFPAY ==
--- NOTE | ~2020-11-26 | MM_ITS ---
EXAMINATION: MM screening [facility] BI w [facility] HISTORY: Screening mammogram TECHNIQUE: Craniocaudal and mediolateral oblique 3-D tomosynthesis images were obtained and synthetic 2-D images were generated. CAD analysis was submitted and interpreted. COMPARISON: 10/23/2019, 08/28/2018, 08/24/2017, additional serial mammograms dating back to 03/25/2011. BREAST PARENCHYMAL COMPOSITION: The breasts are almost entirely fatty. FINDINGS: There is stable focal asymmetric density anteriorly in the upper outer quadrant with associ ated retraction, which is stable in appearance dating back to 03/25/2011. No interval suspicious mass, architectural distortion, malignant calcification, skin thickening or re traction of either breast. Occasional bilateral benign calcifications. IMPRESSION: 1. No mammographic evidence of malignancy. 2. Recommend routine screening mammography in one year. BI-RADS Category 2: Benign finding(s). Reviewed, dictated and finalized at location A.
== END 2020-11-26 09:03 | disposition home or self-care (01) ==
LOC: ANHIMG 09:06
PROVIDERS: PCP Emergency Medicine; Visit Provider Emergency Medicine
DX: Z12.31 Encounter for screening mammogram for malignant neoplasm of breast (principal)
CPT/HCPCS: 77063; 77067

== ENCOUNTER 2021-09-18 08:42 | Outpatient (CLI) | payer OTHER, SELFPAY ==
[2021-09-18 08:58] LABS: Basophils Percent Auto 0.3 % (0.2-1.2); Eosinophils Absolute Auto 0.2 K/mm3 (0-0.3); Eosinophils Percent Auto 3.2 % (0-4.4); Hematocrit 36.3 % (37.0-47.0); Hemoglobin 11.8 g/dL (12.0-15.0); Immature Granulocyte Absolute 0.02 K/mm3 (0.00-0.031); Immature Granulocyte Percent A 0.3 % (0-0.5); Lymphocytes Absolute Auto 1.71 K/mm3 (0.9-3.2); Lymphocytes Percent Auto 28.7 % (18.3-44.2); Mean Corpuscular HGB Conc 32.5 g/dl (32-36); Mean Corpuscular Hemoglobin 30.6 pg (26-34); Mean Platelet Volume 8.7 fl (7.4-10.4); Monocytes Absolute Auto 0.4 K/mm3 (0.1-0.6); Monocytes Percent Auto 7.2 % (2.6-8.5); Neutrophils Absolute Auto 3.6 K/mm3 (1.3-6.7); Neutrophils Percent Auto 60.3 % (45.5-73.1); Platelet Count Result 412 k/mm3 (150-375); Red Blood Count 3.86 M/mm3 (4.2-5.4); Red Cell Distribution Width 12.6 % (11.5-14.5)
[2021-09-18 09:14] LABS: Alanine Aminotransferase 15 U/L (4-35); Albumin Level 4.1 g/dL (3.5-5.1); Alkaline Phosphatase 87 U/L (38-126); Anion Gap 7 mmol/L (8-16); Aspartate Amino Transferase 26 U/L (14-36); Bilirubin,Total 0.5 mg/dL (0.2-1.3); Blood Urea Nitrogen 18 mg/dL (7-17); Calcium 8.9 mg/dL (8.4-10.2); Carbon Dioxide 24 mmol/L (22-30); Chloride 100 mmol/L (98-107); Cholesterol 190 mg/dL (0-200); Estimated Glomerular Filt Rate 54; Glucose 108 mg/dL (65-110); HDL Direct 53 mg/dL; Potassium 4.1 mmol/L (3.4-5.0); Sodium 131 mmol/L (137-145); Triglycerides 104 mg/dL (<150)
[2021-09-18 09:25] LABS: LDL Cholesterol Direct 83 mg/dL
[2021-09-22 08:30] LABS: Vitamin D 1,25 (OH)2 Total 24 pg/mL (18-72); Vitamin D2 1,25 (OH)2 <8 pg/mL; Vitamin D3 1,25 (OH)2 24 pg/mL
== END 2021-09-18 08:43 | disposition home or self-care (01) ==
LOC: ANHLAB 08:44
PROVIDERS: PCP Emergency Medicine; Visit Provider Emergency Medicine
DX: E55.9 Vitamin D deficiency, unspecified (principal); R53.82 Chronic fatigue, unspecified; Z86.79 Personal history of other diseases of the circulatory system; E78.2 Mixed hyperlipidemia
CPT/HCPCS: 36415; 80053; 80061; 82652; 84443; 85025

== ENCOUNTER 2022-03-31 09:03 | Outpatient (CLI) | payer OTHER, SELFPAY ==
[2022-03-31 09:51] LABS: Alanine Aminotransferase 20 U/L (6-35); Albumin Level 4.2 g/dL (3.5-5.1); Alkaline Phosphatase 88 U/L (38-126); Anion Gap 9 mmol/L (8-16); Aspartate Amino Transferase 23 U/L (14-36); Bilirubin,Total 0.6 mg/dL (0.2-1.3); Blood Urea Nitrogen 18 mg/dL (7-17); Calcium 9.3 mg/dL (8.4-10.2); Carbon Dioxide 25 mmol/L (22-30); Chloride 101 mmol/L (98-107); Cholesterol 183 mg/dL (0-200); Estimated Glomerular Filt Rate 54; Glucose 112 mg/dL (65-110); HDL Direct 54 mg/dL; Potassium 3.8 mmol/L (3.4-5.0); Sodium 135 mmol/L (137-145); Triglycerides 123 mg/dL (<150)
[2022-03-31 10:02] LABS: LDL Cholesterol Direct 89 mg/dL
[2022-04-04 23:23] LABS: Vitamin D 1,25 (OH)2 Total 30 pg/mL (18-72); Vitamin D2 1,25 (OH)2 <8 pg/mL; Vitamin D3 1,25 (OH)2 30 pg/mL
== END 2022-03-31 09:04 | disposition home or self-care (01) ==
PROVIDERS: PCP Emergency Medicine; Visit Provider Emergency Medicine
DX: E78.2 Mixed hyperlipidemia (principal); E55.9 Vitamin D deficiency, unspecified
CPT/HCPCS: 36415; 80053; 80061; 82652

== ENCOUNTER 2022-04-02 09:27 | Outpatient (CLI) | payer OTHER, SELFPAY ==
--- NOTE | ~2022-04-02 | MM_ITS ---
EXAMINATION: MM screening [facility] HISTORY: Screening TECHNIQUE: Craniocaudal and mediolateral oblique 3-D tomosynthesis images were obtained and synthetic 2-D images were generated. CAD analysis was submitted and interpreted. COMPARISON: Comparison to multiple prior studies sequentially, with oldest reviewed study dated 01/09. BREAST PARENCHYMAL COMPOSITION: The breasts are almost entirely fatty. FINDINGS: There is no evidence of suspicious mass, calcification, or architectural distortion to sugg est malignancy in either breast. There has been no suspicious interval change. IMPRESSION: 1. No mammographic evidence of malignancy. 2. Recommend routine screening mammography in one year. BI-RADS Category 1: Negative Reviewed, dictated and finalized at location A.
== END 2022-04-02 09:28 | disposition home or self-care (01) ==
PROVIDERS: PCP Emergency Medicine; Visit Provider Emergency Medicine
DX: Z12.31 Encounter for screening mammogram for malignant neoplasm of breast (principal)
CPT/HCPCS: 77063; 77067

== ENCOUNTER 2022-10-05 09:12 | Outpatient (CLI) | payer OTHER, SELFPAY ==
[2022-10-05 09:46] LABS: Hematocrit 38.7 % (37.0-47.0); Mean Corpuscular HGB Conc 33.6 g/dl (32-36); Mean Corpuscular Hemoglobin 30.4 pg (26-34); Mean Corpuscular Volume 90.6 fl (80-100); Mean Platelet Volume 9.2 fl (7.4-10.4); Platelet Count Result 446 k/mm3 (150-375); Red Blood Count 4.27 M/mm3 (4.2-5.4); Red Cell Distribution Width 12.2 % (11.5-14.5); White Blood Count 6.2 K/mm3 (4.5-10.0)
== END 2022-10-05 09:13 | disposition home or self-care (01) ==
PROVIDERS: PCP Emergency Medicine; Visit Provider Emergency Medicine
DX: R53.82 Chronic fatigue, unspecified (principal); R53.83 Other fatigue
CPT/HCPCS: 36415; 84443; 85027

== ENCOUNTER 2023-04-13 08:54 | Outpatient (CLI) | payer OTHER, SELFPAY ==
[2023-04-13 09:24] LABS: Hematocrit 38.2 % (37.0-47.0); Hemoglobin 12.1 g/dL (12.0-15.0); Mean Corpuscular HGB Conc 31.7 g/dl (32-36); Mean Corpuscular Hemoglobin 29.6 pg (26-34); Mean Corpuscular Volume 93.4 fl (80-100); Mean Platelet Volume 9.4 fl (7.4-10.4); Platelet Count Result 370 k/mm3 (150-375); Red Blood Count 4.09 M/mm3 (4.2-5.4)
[2023-04-13 09:38] LABS: Alanine Aminotransferase 15 U/L (6-35); Albumin Level 4.1 g/dL (3.5-5.1); Alkaline Phosphatase 70 U/L (38-126); Anion Gap 7 mmol/L (8-16); Aspartate Amino Transferase 19 U/L (14-36); Bilirubin,Total 0.6 mg/dL (0.2-1.3); Blood Urea Nitrogen 25 mg/dL (7-17); Calcium 9.3 mg/dL (8.4-10.2); Carbon Dioxide 24 mmol/L (22-30); Chloride 107 mmol/L (98-107); Cholesterol 184 mg/dL (0-200); Estimated Glomerular Filt Rate > 60; Glucose 113 mg/dL (65-110); HDL Direct 50 mg/dL; Potassium 3.8 mmol/L (3.4-5.0); Sodium 138 mmol/L (137-145); Triglycerides 133 mg/dL (<150)
[2023-04-13 09:49] LABS: LDL Cholesterol Direct 93 mg/dL
[2023-04-16 12:10] LABS: Vitamin D 1,25 (OH)2 Total 21 pg/mL (18-72); Vitamin D2 1,25 (OH)2 <8 pg/mL; Vitamin D3 1,25 (OH)2 21 pg/mL
== END 2023-04-13 08:55 | disposition home or self-care (01) ==
PROVIDERS: PCP Emergency Medicine; Visit Provider Emergency Medicine
DX: E55.9 Vitamin D deficiency, unspecified (principal); E78.5 Hyperlipidemia, unspecified
CPT/HCPCS: 36415; 80053; 80061; 82652; 85027

== ENCOUNTER 2023-10-18 08:05 | Outpatient (CLI) | payer MEDICARE, SELFPAY ==
--- NOTE | ~2023-10-18 | MM_ITS ---
EXAMINATION: MM screening [facility] HISTORY: Screening mammogram TECHNIQUE: Craniocaudal and mediolateral oblique 3-D tomosynthesis images were obtained and synthetic 2-D images were generated. CAD analysis was submitted and interpreted. COMPARISON: No prior mammogram is available for comparison at this institution. BREAST PARENCHYMAL COMPOSITION: The breasts are almost entirely fatty. FINDINGS: There is no evidence of suspicious mass, calcification, or architectural distortion to sugg est malignancy in either breast. There has been no suspicious interval change. IMPRESSION: 1. No mammographic evidence of malignancy. 2. Recommend routine screening mammography in one year. BI-RADS Category 1: Negative Reviewed, dictated and finalized at location A.
--- NOTE | ~2023-10-18 | DEXA_ITS ---
Bone Density Report Name: ORLY MUNOZ I Age: 78 Sex: Female Ethnicity: White Date of : 1945 Indication: postmenopausal; screening for osteoporosis; parental hip fracture; Referring Provider: NATALI COLEMAN Study: Bone densitometry was performed. Exam Date: October 18, 2023 Accession number: [id number] Bone Density: Region BMD T-score Z-score Classification AP Spine(L1-L4) 1.142 0.9 3.4 Normal Femoral Neck (Left) 0.836 -0.1 2.0 Normal Total Hip (Left) 1.080 1.1 3.0 Normal Femoral Neck (Right) 0.765 -0.8 1.4 Normal Total Hip (Right) 1.086 1.2 3.0 Normal Total Hip Mean 1.083 1.2 3.0 Normal World Health Organization criteria for BMD impression classify patients as: Normal (T-score at or above -1.0), Osteopenia (T-score between -1.0 and -2.5), or Osteoporosis (T-score at or below -2.5). 10-year Fracture Risk: FRAX not reported because: All T-scores for Spine Total, Hip Total, Femoral Neck at or above -1.0 Clinical Information Provided by Patient: Parent has had a hip fracture Has used the following medications: Vitamin D Patient maximum height was 63 Menopause Age: 48 No regular weight bearing exercise Does not regularly consume dairy products Drinks caffeinated beverages Onset of menses at age 14 Number of children 1 Impression: The patient has normal bone mass. The patient has risk factors, including: parental hip fracture. Discussion: BONE DENSITY IS ABOVE THE MINIMUM DESIRABLE LEVEL AT ALL SKELETAL SITES TESTED. This patient?s bone mineral density is above the minimum desirable level (T-score -1.0 or better) at all sites measured. The patient should follow a healthful lifestyle (good nutrition with adequate calcium and vitamin D, and appropriate weight-bearing exercise). Follow-Up: Consider repeating this study in 5 years or sooner if there is some new clinical indication. Reported by: SOURAV on 10/18/2023 8:44:00 AM. Reviewed, dictated and finalized at location Sudarshan DOWLING
== END 2023-10-18 08:06 | disposition home or self-care (01) ==
PROVIDERS: PCP Emergency Medicine; Visit Provider Emergency Medicine
DX: Z12.31 Encounter for screening mammogram for malignant neoplasm of breast (principal); Z78.0 Asymptomatic menopausal state
CPT/HCPCS: 77063; 77067; 77080

== ENCOUNTER 2024-11-01 09:21 | Outpatient (CLI) | payer MEDICARE, SELFPAY ==
[2024-11-01 10:45] LABS: Basophils Percent Auto 0.7 % (0.2-1.2); Eosinophils Absolute Auto 0.1 K/mm3 (0-0.3); Eosinophils Percent Auto 2.3 % (0-4.4); Hematocrit 37.3 % (37.0-47.0); Immature Granulocyte Absolute 0.03 K/mm3 (0.00-0.031); Immature Granulocyte Percent A 0.5 % (0-0.5); Lymphocytes Absolute Auto 1.76 K/mm3 (0.9-3.2); Lymphocytes Percent Auto 30.6 % (18.3-44.2); Mean Corpuscular HGB Conc 32.2 g/dl (32-36); Mean Corpuscular Hemoglobin 29.6 pg (26-34); Mean Corpuscular Volume 92.1 fl (80-100); Mean Platelet Volume 9.2 fl (7.4-10.4); Monocytes Absolute Auto 0.5 K/mm3 (0.1-0.6); Monocytes Percent Auto 8.3 % (2.6-8.5); Neutrophils Absolute Auto 3.3 K/mm3 (1.3-6.7); Neutrophils Percent Auto 57.6 % (45.5-73.1); Platelet Count Result 362 k/mm3 (150-375); Red Blood Count 4.05 M/mm3 (4.2-5.4); Red Cell Distribution Width 13.2 % (11.5-14.5); White Blood Count 5.8 K/mm3 (4.5-10.0)
[2024-11-01 10:56] LABS: Alanine Aminotransferase 15 U/L (6-35); Albumin Level 4.2 g/dL (3.5-5.1); Alkaline Phosphatase 87 U/L (38-126); Anion Gap 10 mmol/L (4-12); Aspartate Amino Transferase 22 U/L (14-36); Bilirubin,Total 0.5 mg/dL (0.2-1.3); Blood Urea Nitrogen 24 mg/dL (7-17); Calcium 9.3 mg/dL (8.4-10.2); Carbon Dioxide 22 mmol/L (22-30); Chloride 106 mmol/L (98-107); Cholesterol 181 mg/dL (0-200); Estimated Glomerular Filt Rate 51; Glucose 94 mg/dL (65-110); HDL Direct 58 mg/dL; Phosphorus 3.8 mg/dL (2.5-4.5); Potassium 4.2 mmol/L (3.4-5.0); Sodium 138 mmol/L (137-145); Triglycerides 116 mg/dL (<150)
[2024-11-01 11:07] LABS: LDL Cholesterol Direct 78 mg/dL
[2024-11-01 11:37] LABS: Free T4 Free Thyroxine 1.38 ng/dL (0.78-2.19); Vitamin D 25 Hydroxy 48.8 ng/mL
[2024-11-01 23:24] LABS: Hepatitis C Virus Antibody 0.04 S/C; Hepatitis C Virus Antibody Negative (Negative)
== END 2024-11-01 09:22 | disposition home or self-care (01) ==
PROVIDERS: PCP Emergency Medicine; Visit Provider Emergency Medicine
DX: E55.9 Vitamin D deficiency, unspecified (principal); E78.2 Mixed hyperlipidemia; G47.09 Other insomnia; I10 Essential (primary) hypertension; K63.5 Polyp of colon; Z11.59 Encounter for screening for other viral diseases
CPT/HCPCS: 36415; 80061; 80069; 80076; 82306; 84439; 84443; 85025; 86803

== ENCOUNTER 2024-12-01 07:28 | Outpatient (CLI) | payer MEDICARE, SELFPAY ==
--- NOTE | ~2024-12-01 | MM_ITS ---
EXAMINATION: MM screening [facility] BI w [place] HISTORY: Screening TECHNIQUE: Craniocaudal and mediolateral oblique 3-D tomosynthesis images were obtained and synthetic 2-D images were generated. CAD analysis was submitted and interpreted. COMPARISON: Comparison to multiple prior studies sequentially, with oldest reviewed study dated 12/2017. BREAST PARENCHYMAL COMPOSITION: Not Dense: The breasts are almost entirely fatty. FINDINGS: There is no evidence of suspicious mass, calcification, or architectural distortion to sugg est malignancy in either breast. There has been no suspicious interval change. IMPRESSION: 1. No mammographic evidence of malignancy. 2. Recommend routine screening mammography in one year. BI-RADS Category 1: Negative Reviewed, dictated and finalized at location A.
--- OUTSIDE RECORDS SUMMARY | 2024-12-01 07:36 | XMS_ITS | Continuity of Care Document ---
Author Organization [facility] Address [address] [place] [address] [place] [address] Phone Care Team Providers Care [place] [facility] Guide Name Role Phone Manish Johnston MD Unavailable Unavailable Allergies, Adverse Reactions, Alerts Substance Reaction Status Criticality No Known Allergies Active No Inform ation Medications Medication Instructions Dosage Effective Dates (start - stop) Status Comments prazosin 1 mg capsule take 1 capsule by oral route [facility] - Active fluticasone propionate 50 mcg/actuation nasal spray,suspension inhale 2 spray by intranasal route every day in each nostril 100 MCG - Active Lipitor 40 mg tablet take 1 tablet (40MG ) by oral route every day - Active lisinopril 20 mg-hydrochlorothiazi de 25 mg tablet take 1 tablet by oral route every day 1.00 tablet - Active Norvasc 5 mg tablet take 1 tablet (5MG) by oral route every day - Active azelastine 137 mcg (0.1 %) nasal spray spray 1 spray by intranasal route 2 times every day in each nostril 1 spray - Active doxycycline hyclate 20 mg tablet take 1 tablet by oral route every day 1 hour before a meal or 2 hours after a meal 20 MG - Active Vitamin D2 1,250 mcg (50,000 unit) capsule take one capsule orally once per week - Active Procedures Procedure Date PREV VISIT, EST, 65 & OVER OFFICE/OUTPATIENT VISIT, EST OFFICE/OUTPATIENT VISIT, EST OFFICE/OUTPATIENT VISIT, EST PREV VISIT, NEW, 65 & OVER OFFICE/OUTPATIENT VISIT, NEW OFFICE/OUTPATIENT VISIT, EST OFFICE/OUTPATIENT VISIT, EST OFFICE/OUTPATIENT VISIT, EST OFFICE/OUTPATIENT VISIT, EST OFFICE/OUTPATIENT VISIT, EST OFFICE/OUTPATIENT VISIT, EST OFFICE/OUTPATIENT VISIT, EST OFFICE/OUTPATIENT VISIT, EST Advance Directives Directive Yes / No Effective Date File Name No Information Encounters Encounter Description Practice Location Reason(s) For Visit Diagnoses Date Provider Providers Copied on Encounter [facility], [address], [place], [place], [id number], [place] tel:[phone] [facility] No Information 5 Preston Burch [address], [place], [place], [address] , [place]. tel:[phone] Referring Provider: Kristopher Fairchild [address], [place], [place], [address]. tel:[phone] PREV VISIT, EST, 65 & OVER [facility], [address], [place], [place], [address], [place] tel:[phone] [facility] physical (chief complaint) Encounter for general adult medical examination without abnormal findings 5 Preston Burch [address], [place], [place], [address] , [place]. tel:[phone] Referring Provider: Kristopher Fairchild [address], [place], [place], [address]. tel:[phone] OFFICE/OUTPA TIENT VISIT, [facility], [address], [place], [place], [address], [place] tel:[phone] [facility] insomnia1 (chief complaint) HTN (chief complaint) sinus (chief complaint) HLP (chief complaint) Essential (primary) hypertensionMixed hyperlipidemiaAller gic rhinitis due to pollenOther insomnia 4 Preston Burch [address], [address], [place], [place], [address] , [place]. tel:[phone] Referring Provider: Kristopher Fairchild [address], [place], [place], [address]. tel:[phone] OFFICE/OUTPA TIENT VISIT, [facility], [address], [place], [place], [address], [place] tel:[phone] [facility] sick (chief complaint) weight1 (chief complaint) colon polyp1 (chief complaint) Abnormal weight gainPolyp of colonDizzinessOther specified disorder of bone densityEncntr screen mammogram for malignant neoplasm of breast 4 Preston Hammond. [address], [address], [place], [place], [address] , [place]. tel:[phone] Referring Provider: Kristopher Fairchild [address], [place], [place], [address]. tel:[phone] OFFICE/OUTPA TIENT VISIT, [facility], [address], [place], [place], [address], [place] tel:[phone] [facility] HTN (chief complaint) HLP (chief complaint) colon polyp1 (chief complaint) weight1 (chief complaint) Essential (primary) hypertensionMixed hyperlipidemiaPolyp of colonAbnormal weight gain 4 Preston Hammond. [address], [address], [place], [place], [address] , [place]. tel:[phone] Referring Provider: Kristopher Fairchild [address], [place], [place], [address]. tel:[phone] PREV VISIT, NEW, 65 & OVER [facility], [address], [place], [place], [address], [place] tel:[phone] [facility] physical (chief complaint) Encounter for general adult medical exam w abnormal findingsEssential (primary) hypertensionMixed hyperlipidemiaAller gic rhinitis due to pollenPolyp of colon 4 Preston Hammond. [address], [place], [place], [address] , [place]. tel:[phone] Referring Provider: Kristopher Fairchild [address], [place], [place], [address]. tel:[phone] OFFICE/OUTPA TIENT VISIT, [facility], [address], [place], [place], [address], tel:[phone] [facility] HTN (chief complaint) HLP (chief complaint) dry skin (chief complaint) knee pain (chief complaint) gERD (chief complaint) Unspecified essential hypertensionOther and unspecified hyperlipidemiaEsoph ageal refluxDietary surveillance and counselingBMI 40.0 to 44.9 5 Preston Hammond. [address], [address], [place], [place], [address] , [place]. tel:[phone] Referring Provider: Kristopher Fairchild [address], [place], [place], [address]. tel:[phone] OFFICE/OUTPA TIENT VISIT, [facility], [address], [place], [place], [address], [place] tel:[phone] [facility] Knee pain (chief complaint) HTN (chief complaint) HLP (chief complaint) Dietary surveillance and counselingHypertens ion, UnspecifiedBMI 40.0-44.9, ADULTOsteoarthrosis , unspecified whether generalized or localized, involving unspecified siteMixed Hyperlipidemia 5 Preston Hammond. [address], [place], [place], [address] , [place]. tel:[phone] Referring Provider: Kristopher Fairchild [address], [place], [place], [address]. tel:[phone] OFFICE/OUTPA TIENT VISIT, [facility], [address] [place], [address], [place] tel:[phone] [facility] HLP (chief complaint) HTN (chief complaint) knee pain (chief complaint) GERD (chief complaint) Dietary surveillance and counselingOther and unspecified hyperlipidemiaOsteo arthritis, GeneralizedAllergic rhinitis, cause unspecifiedHyperten ignacia, Unspecified 4 Preston Hammond. [address], [place], [place], [address] , [place]. [phone] Referring Provider: Kristopher Fairchild [address], [place], [place], [address]. tel:[phone] OFFICE/OUTPA TIENT VISIT, [facility], [address], [place], [place], [address], [place] [phone] [facility] knee pain (chief complaint) Dietary surveillance and counselingPain in joint involving lower legOsteoarthritis, Generalized 4 Preston Hammond. [address], [place], [place], [address] , [place]. [phone] Referring Provider: Kristopher Fairchild [address], [place], [place], [address]. tel:[phone] OFFICE/OUTPA TIENT VISIT, [facility], [address], [place], [place], [address], [place] tel:[phone] [facility] back pain (chief complaint) Lumbago 4 Preston Hammond. [address], [place], [place], [address] , [place]. [phone] Referring Provider: Kristopher Fairchild [address], [place], [place], [address]. tel:[phone] OFFICE/OUTPA TIENT VISIT, [facility], [address], [place], [place], [address], [place] tel:[phone] [facility] HLP (chief complaint) vitamin D (chief complaint) HTN (chief complaint) GERD (chief complaint) ear canal (chief complaint) Dietary surveillance and counselingHypertens ion, UnspecifiedOther and unspecified hyperlipidemiaGERDS eborrheic dermatitis, unspecified Mar-3 4 Preston Hammond. [address], [place], [place], [address] , [place]. [phone] Referring Provider: Kristopher Fairchild [address], [place], [place], [address]. tel:[phone] OFFICE/OUTPA TIENT VISIT, [facility], [address], [place], [place], [address], tel:[phone] [facility] HTN (chief complaint) HLP (chief complaint) sinus allegy (chief complaint) Dietary surveillance and counselingHypertens ion, UnspecifiedOther and unspecified hyperlipidemiaAnal and rectal polypAllergic rhinitis, cause unspecified 3 Preston Hammond. [address], [place], [place], [address] , [place]. tel:[phone] Referring Provider: Kristopher Fairchild [address], [place], [place], [address]. tel:[phone] OFFICE/OUTPA TIENT VISIT, [facility], [address], [place], [place], [address], [place] tel:[phone] [facility] HTN (chief complaint) HLP (chief complaint) Dietary surveillance and counselingHypertens ion, UnspecifiedOther and unspecified hyperlipidemiaAnal and rectal polyp 3 Preston Hammond. [address], [place], [place], [address] , [place]. tel:[phone] Referring Provider: Kristopher Fairchild [address], [place], [place], [address]. tel:[phone] Family History Family Member Type Diagnosis Age At Onset Father Problem (finding) natural cause Brother Problem (finding) Alive and well Mother Problem (finding) natural cause Payers Payer name Insurance type Covered democrat ID Authoriza tion(s) No Information Social History Type Description Quantity Date Captured Comments Sex Female Smoking Status No Information Chief Complaint And Reason For Visit No Information Plan Of Treatment Date Type Action Status Goal Cognitive assessment. Due on due Goal Zoster vaccine. Due on due Goal Td vaccine. Due on due Goal Pneumococcal vaccine. Due on due Goal Influenza vaccine. Due on due Goal Depression screening. Due on due Goal Zoster vaccine. Due on due Goal Depression screening. Due on due Goal Cognitive assessment. Due on due Goal Td vaccine. Due on due Goal Pneumococcal vaccine. Due on due Goal Influenza vaccine. Due on Oc due Goal Depression screening. Due on due Goal Zoster vaccine. Due on due Goal Td vaccine. Due on due Goal Pneumococcal vaccine. Due on due Goal Cognitive assessment. Due on due Goal Influenza vaccine. Due on due Goal Td vaccine. Due on due Goal Zoster vaccine. Due on due Goal Cognitive assessment. Due on due Goal Depression screening. Due on due Goal Influenza vaccine. Due on due Goal Pneumococcal vaccine. Due on due Goal Td vaccine. Due on due Goal Zoster vaccine. Due on due Goal Cognitive assessment. Due on due Goal Influenza vaccine. Due on due Goal Pneumococcal vaccine. Due on due Goal Depression screening. Due on due Goal FOBT. Due on due Goal Depression screening. Due on due Goal Cognitive assessment. Due on due Goal Zoster vaccine. Due on due Goal Td vaccine. Due on 15 due Goal Sigmoidoscopy. Due on due Goal Pneumococcal vaccine. Due on due Goal Influenza vaccine. Due on due Referral Ordered: MAMMOGRAM, SCREENING ordered Referral Ordered: Ortho Surg (related to Pain in joint involving lower leg) ordered Referral Ordered: Referral: Ortho Surg. Evaluate and treat. ordered Referral Ordered: KNEE XRAY, 3 VIEW Right ordered Referral Ordered: CHEST X-RAY PA/LAT TWO-VIEWS ordered Referral Ordered: MAMMOGRAM, BOTH BREASTS ordered Referral Ordered: COLONOSCOPY AND BIOPSY ordered Referral Ordered: DXA BONE DENSITY, AXIAL ordered History Of Present Illness Encounter Date Complaint History Of Prese nt Illness physical Pt needs annual physical. Pt has HTN Pt takes norvasc and lisinopril/hctz and her bp is ok. Pt has HLP Pt takes lipitor Pt denies any myalgia. Pt was having a nightmare 48 hours ago and she fell out of bed and hit her head on the dresser. Pt did not pass out. Pt c/o some bruising under her eye and she has been having very mild headache Pt denies any dizziness. Pt currently denies any headache Pt denies any mental status change. Pt denies any other complaints. HLP Pt has HLP Pt ta kes lipitor Pt denies any myalgia. insomnia1 Pt has insomnia. Pt tosses and turns all night. Pt tried and failed OTC meds HTN Pt has HTn Pt ta kes norvasc and lisinopril/hctz and her bp is ok sinus Pt has sinus all ergy Pt is on flonase and astelin nasal spray and doing well Pt needs refill sick Pt c/o mild naus ea and dizzy feeling and bilateral hand tingling and something is off feeling for 2-3 days. Pt denies any abd pain, vomiting, headache chest pain, sob, etc. Pt denies any cough or sore throat or other infectious symptoms Pt denies any fever. Pt denies any mental status change. Pt denies any syncope. Pt denies any orthostasis weight1 Pt started phent ermine 7 days ago Pt notices mild appetite suppression Pt denies any dry mouth or chest pain or headache colon polyp1 Pt has history o f tubular adenoma. Pt denies any GI issue Pt has not contacted GI yet for colonoscopy. HTN Pt has HTN Pt ta kes norvasc and lisinopril/hctz and her bp is ok. pt denies any chest gordillo or headache HLP Pt has HLP, Pt t akes lipitor pt denies any myalgia colon polyp1 Pt has colon milo yp which was tubular adenoma. pt denies any Gi issue Pt has not heard from GI yet about colonoscopy weight1 Pt is getting ma rried soon and she wants to lose some weight ,Pt failed diet and exercise Pt wants to try medication for weight loss physical Pt needs annual physical pt has HTN. Pt takes lisinopril/hctz and norvasc and her bp is ok. Pt has HLP Pt takes lipitor Pt denies any myalgia. Pt has chronic gingivitis. Pt takes doxycycline 20 mg daily per her dentist. Pt also has chronic sinus allergy Pt takes flonase and azelastine and doing ok. Pt has history of tubular adenoma back in 2019 and she needs to repeat colonoscopy now. Pt denies any lower GI issue .Pt overall feels fine HLP Pt takes lipitor and no myalgia. Pt is trying low fat and low carb diet dry skin Pt has some dry skin occassionally around left ear lobe and she did well with steroid topical. pt wants refill. Pt denies any problem now knee pain Location: knee. Additional information: Pt has right knee pain. Pt has degenerative change. Pt received shot from ortho which helped. Pt denies any worsening pain. Pt denies any swelling or redenss. gERD Pertinent negati ves include constipation, diarrhea, dyspnea, fever, heartburn, hematuria, rash, vaginal discharge, vomiting, weight gain and weight loss.Additional information:Pt takes zantac and denies any gERd or abd pain. HTN Pt takes norvasc and lisinopril and her BP is well controlled. pt denies any chest pain Instructions Date Instruction Additional Infor mation Prescribed Activity and Exercise Education Related to Dietary Surveillance and Counseling Prescribed Diet Educ ation/Lifestyle Education Regarding Diet Related to Dietary Surveillance and Counseling Decrease caloric intake Related to Dietary surveillance counseling Physical activity counseling Rel ated to Dietary surveillance counseling Decrease caloric intake Related to Dietary surveillance counseling Dietary counseling Related to Di etary surveillance counseling Decrease caloric intake Related to Dietary surveillance counseling Dietary counseling Related to Di etary surveillance counseling Dietary counseling Related to Di etary surveillance counseling Decrease caloric intake Related to Dietary surveillance counseling Dietary counseling Related to Di etary surveillance counseling Decrease caloric intake Related to Dietary surveillance counseling Dietary counseling Related to Di etary surveillance counseling Decrease caloric intake Related to Dietary surveillance counseling Assessments Type Assessment Date No Information
== END 2024-12-01 07:29 | disposition home or self-care (01) ==
LOC: ANHIMG 07:34
PROVIDERS: PCP Emergency Medicine; Visit Provider Emergency Medicine
DX: Z12.31 Encounter for screening mammogram for malignant neoplasm of breast (principal)
CPT/HCPCS: 77063; 77067

== ENCOUNTER 2025-02-04 01:52 | Day surgery (SDC) | payer MEDICARE, SELFPAY ==
[2025-01-21 14:58] VITALS: BMI 36.1
--- OUTSIDE RECORDS SUMMARY | 2025-02-04 01:55 | XMS_ITS | Continuity of Care Document ---
Author Organization [facility] Address [address] [place] [address] Phone Care Team Providers Care Business Planning Director Name Role Phone Manish Johnston MD Unavailable Unavailable Allergies, Adverse Reactions, Alerts Substance Reaction Status Criticality No Known Allergies Active No Inform ation Medications Medication Instructions Dosage Effective Dates (start - stop) Status Comments prazosin 1 mg capsule take 1 capsule by oral route qhs - Active azelastine 137 mcg (0.1 %) nasal spray spray 1 spray by intranasal route 2 times every day in each nostril 1 spray - Active Norvasc 5 mg tablet take 1 tablet (5MG) by oral route every day - Active lisinopril 20 mg-hydrochlorothiazi de 25 mg tablet take 1 tablet by oral route every day 1.00 tablet - Active Lipitor 40 mg tablet take 1 tablet (40MG ) by oral route every day - Active fluticasone propionate 50 mcg/actuation nasal spray,suspension inhale 2 spray by intranasal route every day in each nostril 100 MCG - Active Vitamin D2 1,250 mcg (50,000 unit) capsule take one capsule orally once per week - Active doxycycline hyclate 20 mg tablet take 1 tablet by oral route every day 1 hour before a meal or 2 hours after a meal 20 MG - Active Procedures Procedure Date PREV VISIT, [...] Diagnoses Date Provider Providers Copied on Encounter [facility], [address], [place], [place], [address], [place] tel:[phone] [facility] No Information 5 Preston Burch [address], [place], [place], [address] , [place]. tel:[phone] Referring Provider: Kristopher Fairchild [address], [place], [place], [address]. tel:[phone] PREV VISIT, EST, 65 & OVER [facility], [address], [place], [place], [address], [place] tel:[phone] [facility] physical (chief complaint) Encounter for general adult medical examination without abnormal findings 5 Preston Burch [address], [place], [place], [address] , [place]. tel:[phone] Referring Provider: Kristopher Fairchild [address], [place], [place], [address]. tel:[phone] OFFICE/OUTPA TIENT VISIT, [facility], [address], [place], [place], [address], [place] tel:[phone] [facility] insomnia1 (chief complaint) HTN (chief complaint) sinus (chief complaint) HLP (chief complaint) Essential (primary) hypertensionMixed hyperlipidemiaAller gic rhinitis due to pollenOther insomnia 4 Preston Burch [address], [place], [place], [address] , [place]. tel:[phone] Referring Provider: Kristopher Fairchild [address], [place], [place], [address]. tel:[phone] OFFICE/OUTPA TIENT VISIT, [facility], [address], [place], [place], [address], [place] tel:[phone] [facility] sick (chief complaint) weight1 (chief complaint) colon polyp1 (chief complaint) Abnormal weight gainPolyp of colonDizzinessOther specified disorder of bone densityEncntr screen mammogram for malignant neoplasm of breast 4 Preston Hammond. [address], [place], [place], [address] , [place]. tel:[phone] Referring Provider: Kristopher Fairchild [address], [place], [place], [address]. tel:[phone] OFFICE/OUTPA TIENT VISIT, [facility], [address], [place], [place], [address], [place] tel:[phone] [facility] HTN (chief complaint) HLP (chief complaint) colon polyp1 (chief complaint) weight1 (chief complaint) Essential (primary) hypertensionMixed hyperlipidemiaPolyp of colonAbnormal weight gain 4 Preston Hammond. [address], [place], [place], [address] , [place]. tel:[phone] Referring Provider: Kristopher Fairchild [address], [place], [place], [address]. tel:[phone] PREV VISIT, NEW, 65 & OVER [facility], [address], [place], [place], [address], [place] tel:[phone] [facility] physical (chief complaint) Encounter for general adult medical exam w abnormal findingsEssential (primary) hypertensionMixed hyperlipidemiaAller gic rhinitis due to pollenPolyp of colon 4 Preston Hammond. [address], [place], [place], [address] , [place]. tel:[phone] Referring Provider: Kristopher Fairchild [address], [place], [place], [address]. tel:[phone] OFFICE/OUTPA TIENT VISIT, [facility], [address], [place], [place], [address], tel:[phone] [facility] HTN (chief complaint) HLP (chief complaint) dry skin (chief complaint) knee pain (chief complaint) gERD (chief complaint) Unspecified essential hypertensionOther and unspecified hyperlipidemiaEsoph ageal refluxDietary surveillance and counselingBMI 40.0 to 44.9 5 Preston Hammond. [address], [place], [place], [address] , [place]. tel:[phone] Referring Provider: Kristopher Fairchild [address], [place], [place], [address]. tel:[phone] OFFICE/OUTPA TIENT VISIT, [facility], [address], [place], [place], [address], [place] tel:[phone] [facility] Knee pain (chief complaint) HTN (chief complaint) HLP (chief complaint) Dietary surveillance and counselingHypertens ion, UnspecifiedBMI 40.0-44.9, ADULTOsteoarthrosis , unspecified whether generalized or localized, involving unspecified siteMixed Hyperlipidemia 5 Preston Hammond. [address], [place], [place], [address] , [place]. tel:[phone] Referring Provider: Kristopher Fairchild [address], [place], [place], [address]. tel:[phone] OFFICE/OUTPA TIENT VISIT, [facility], [address], [address], [place] tel:[phone] [facility] HLP (chief complaint) HTN (chief complaint) knee pain (chief complaint) GERD (chief complaint) Dietary surveillance and counselingOther and unspecified hyperlipidemiaOsteo arthritis, GeneralizedAllergic rhinitis, cause unspecifiedHyperten ignacia, Unspecified 4 Preston Hammond. [address], [place], [place], [address] , [place]. [phone] Referring Provider: Kristopher Fairchild [address], [place], [place], [address]. tel:[phone] OFFICE/OUTPA TIENT VISIT, [facility], [address], [place], [place], [address], [place] [phone] [facility] knee pain (chief complaint) Dietary surveillance and counselingPain in joint involving lower legOsteoarthritis, Generalized 4 Preston Hammond. [address], [place], [place], [address] , [place]. tel:[phone] Referring Provider: Kristopher Fairchild [address], [place], [place], [address]. tel:[phone] OFFICE/OUTPA TIENT VISIT, [facility], [address], [place], [place], [address], [place] tel:[phone] [facility] back pain (chief complaint) Lumbago 4 Preston Hammond. [address], [place], [place], [address] , [place]. [phone] Referring Provider: Kristopher Fairchild [address], [place], [place], [address]. tel:[phone] OFFICE/OUTPA TIENT VISIT, [facility], [address], [place], [place], [address], [place] tel:[phone] [facility] HLP (chief complaint) vitamin D (chief complaint) HTN (chief complaint) GERD (chief complaint) ear canal (chief complaint) Dietary surveillance and counselingHypertens ion, UnspecifiedOther and unspecified hyperlipidemiaGERDS eborrheic dermatitis, unspecified Mar-3 4 Preston Hammond. [address], [place], [place], [address] , [place]. tel:[phone] Referring Provider: Kristopher Fairchild [address], [place], [place], [address]. tel:[phone] OFFICE/OUTPA TIENT VISIT, [facility], [address], [place], [place], [address], tel:[phone] [facility] HTN (chief complaint) HLP (chief complaint) sinus allegy (chief complaint) Dietary surveillance and counselingHypertens ion, UnspecifiedOther and unspecified hyperlipidemiaAnal and rectal polypAllergic rhinitis, cause unspecified 3 Preston Hammond. [address], [place], [place], [address] , [place]. tel:[phone] Referring Provider: Kristopher Fairchild [address], [place], [place], [address]. tel:[phone] OFFICE/OUTPA TIENT VISIT, [facility], [address], [place], [place], [address], [place] tel:[phone] [facility] HTN (chief complaint) HLP (chief complaint) Dietary surveillance and counselingHypertens ion, UnspecifiedOther and unspecified hyperlipidemiaAnal and rectal polyp Aug- 3 Preston Hammond. [address], [place], [place], [address] , [place]. tel:[phone] Referring Provider: Kristopher Fairchild [address], [place], [place], [address]. tel:[phone] Family History Family Member Type Diagnosis Age [...] Of Treatment Date Type Action Status Goal Influenza vaccine. Due on due Goal Depression screening. Due on due Goal Cognitive assessment. Due on due Goal Zoster vaccine. Due on due Goal Td vaccine. Due on due Goal Pneumococcal vaccine. Due on due Goal Zoster vaccine. [...] Goal Influenza vaccine. Due on due Goal Influenza vaccine. Due on due Goal Pneumococcal vaccine. Due on due Goal Td vaccine. Due on due Goal Zoster vaccine. Due on due Goal Cognitive assessment. Due on due Goal Depression screening. Due on due Goal Td vaccine. Due on due Goal Zoster vaccine. Due on due Goal Cognitive assessment. Due on due Goal Depression screening. Due on due Goal Influenza vaccine. Due on due Goal Pneumococcal vaccine. Due on due Goal Zoster vaccine. Due on due Goal Td vaccine. Due on 15 due Goal Sigmoidoscopy. Due on due Goal Pneumococcal vaccine. Due on due Goal Influenza vaccine. Due on due Goal FOBT. Due on due Goal Depression screening. Due on due Goal Cognitive assessment. Due on due Referral Ordered: MAMMOGRAM, SCREENING [...]
[2025-02-04 09:22] VITALS: BP 122/54; PULSE 87; RESP 18; TEMP 36.6; O2SAT 100
[2025-02-04] MEDS: LACTATED RINGERS 1,000 ML 150 ML IV CONT (09:27)
--- NOTE | 2025-02-04 09:29 | P.PNAN_ITS ---
Anes - Initial Pre Proc Eval Procedure: Operation Date: 02/04/25 10:30 Proposed Procedures p Screening Colonoscopy - Saleem Martini MD Date/Time: 02/04/25 09:29 Surgeon: Saleem Martini MD Pre Op Diagnosis: Tubular adenoma Patient Data Age: 79 Gender: F Height: 1.6 m Weight: 91.7 kg Last Vital Signs Temp 36.6 C 02/04/25 09:22 Pulse 87 02/04/25 09:22 Resp 18 02/04/25 09:22 BP 122/54 L 02/04/25 09:22 Pulse Ox 100 02/04/25 09:22 O2 Del Method Room Air 02/04/25 09:22 Allergies Allergy/AdvReac Type Severity Reaction Status Date / Time Sulfa (Sulfonamide Allergy Unknown Unknown Verified 01/21/25 15:01 Antibiotics) Home Medications ?Medication ?Instructions ?Recorded ?Confirmed ?Type triamcinolone acetonide 0.1 % 1 applic topical TID #80 grams 04/16/22 02/04/25 Rx topical cream lisinopril 20 See Rx Instructions .Route 07/30/22 02/04/25 Rx mg-hydrochlorothiazide 25 mg tablet .COMPLEX #90 tabs fluticasone propionate 50 See Rx Instructions .Route 04/21/23 02/04/25 Rx mcg/actuation nasal .COMPLEX #48 mL spray,suspension amlodipine 5 mg tablet See Rx Instructions .Route 05/06/23 02/04/25 Rx .COMPLEX #90 tabs atorvastatin 40 mg tablet See Rx Instructions .Route 05/06/23 02/04/25 Rx .COMPLEX #90 tabs cholecalciferol (vitamin D3) 50 100 mcg (2 x 50 mcg (2,000 unit)) 05/09/23 02/04/25 Rx mcg (2,000 unit) capsule PO DAILY #180 caps azelastine 137 mcg (0.1 %) nasal See Rx Instructions .Route 06/15/23 02/04/25 Rx spray .COMPLEX #30 mL famotidine 20 mg tablet (Acid 20 mg PO DAILY 01/21/25 02/04/25 History Controller) tirzepatide (weight loss) 2.5 2.5 mg subcut WEEKLY 01/21/25 02/04/25 History mg/0.5 mL subcutaneous pen injector (Zepbound) Patient hx anesthesia problems: none Family hx anesthesia problems: none Results Review: All pre-operative results and documents have been reviewed as part of the pre- operative evaluation. [facility], [facility] Past Medical History Medical History Upper back strain Tendinitis of left rotator cuff Strain of rotator cuff of left shoulder Viral sinusitis Toenail fungus Retinal detachment of left eye with multiple breaks Primary osteoarthritis of right knee Patient had no falls in past year Moderate persistent asthma without complication Localized osteoarthritis of right knee Influenza Hyperglycemia Hand pain, left Generalized anxiety disorder Gastroesophageal reflux disease without esophagitis Gastroenteritis DJD of AC (acromioclavicular) joint Depression screening negative Chronic pain of both knees Blind left eye Acute pain of left shoulder Depression Left knee pain Right knee pain H/O: HTN (hypertension) Vitamin D deficiency disease GERD (gastroesophageal reflux disease) DJD (degenerative joint disease) HLD (hyperlipidemia) Surgical History Surgical History History of cataract surgery History of detached retina repair Family History Family History Sibling Patient's brother is in good health Mother Family history of Alzheimer's disease, Onset Age: 82 Patient's mother is Father Patient's father is Acute myocardial infarction, Onset Age: 75 Social History Social History Smoking packs per day: 1 Smoking cigarettes per day: 20.0 Years smoked: 10 Smoking pack-years: 10.00 Smoking status: Former smoker Tobacco type: cigarettes Smoking end date: 06/20/00 Alcohol intake: current Drinks per week: 1 Alcohol use details: holidays Substance use: never Substance use type: does not use Lack of Transportation: No Lack of Food: Never True Current Housing: I Have Housing Concerned About Future Housing: No Difficulty Paying Gas/Electric Bills: No Difficulty Paying for Meds: No Currently Unemployed: No Education: Bachelor's Degree Difficulty w/ Childcare or Family Care: No Living arrangements: with family Gender identity (if verbalized by the patient): Female Spiritual care concerns: No Anes - Eval Final PreProcedure Day of Procedure 02/04/25 09:29 Patient weight: obese Heart: regular rate and rhythm Lungs: clear to auscultation Airway: Mallampati scale class II Neurological: alert and oriented Last oral intake: >/= 8 hours ASA classification: III Emergent: no Anesthetic plan: proceed Anesthesia type and monitoring: general GIVS and standard monitoring Results Review: All pre-operative results and documents have been reviewed as part of the pre- operative evaluation. Informed Consent: The patient's anesthetic plan and its attendant risks and benefits were discussed with the patient/family/POA. Questions were solicited and answers provided to the satisfaction of the patient/family/POA.
--- NOTE | 2025-02-04 10:13 | PM.HPGS ---
History of Present Illness History of Present Illness Consent: Risks, benefits, and alternatives have been discussed and questions answered. Patient agrees to proceed with procedure. Chief complaint: Tubular adenoma Narrative: Boston Vicente is a 79 year old female with colon polyp in 2019 Review of Systems Review of Systems: All systems reviewed & are unremarkable except as noted in HPI and below PMFSH Past Medical History Medical History (Updated 02/04/25 @ 10:13 by Saleem Martini MD) Colon polyp Upper back strain Tendinitis of left rotator cuff Strain of rotator cuff of left shoulder Viral sinusitis Toenail fungus Retinal detachment of left eye with multiple breaks Primary osteoarthritis of right knee Patient had no falls in past year Moderate persistent asthma without complication Localized osteoarthritis of right knee Influenza Hyperglycemia Hand pain, left Generalized anxiety disorder Gastroesophageal reflux disease without esophagitis Gastroenteritis DJD of AC (acromioclavicular) joint Depression screening negative Chronic pain of both knees Blind left eye Acute pain of left shoulder Depression Left knee pain Right knee pain H/O: HTN (hypertension) Vitamin D deficiency disease GERD (gastroesophageal reflux disease) DJD (degenerative joint disease) HLD (hyperlipidemia) Surgical History Surgical History History of cataract surgery History of detached retina repair Family History Family History Sibling Patient's brother is in good health Mother Family history of Alzheimer's disease, Onset Age: 82 Patient's mother is Father Patient's father is Acute myocardial infarction, Onset Age: 75 Social History Social History Smoking packs per day: 1 Smoking cigarettes per day: 20.0 Years smoked: 10 Smoking pack-years: 10.00 Smoking status: Former smoker Tobacco type: cigarettes Smoking end date: 06/20/00 Alcohol intake: current Drinks per week: 1 Alcohol use details: holidays Substance use: never Substance use type: does not use Lack of Transportation: No Lack of Food: Never True Current Housing: I Have Housing Concerned About Future Housing: No Difficulty Paying Gas/Electric Bills: No Difficulty Paying for Meds: No Currently Unemployed: No Education: Bachelor's Degree Difficulty w/ Childcare or Family Care: No Living arrangements: with family Gender identity (if verbalized by the patient): Female Spiritual care concerns: No Meds Home Medications and Allergies Home Medications ?Medication ?Instructions ?Recorded ?Confirmed ?Type triamcinolone acetonide 0.1 % 1 applic topical TID #80 grams 04/16/22 02/04/25 Rx topical cream lisinopril 20 See Rx Instructions .Route 07/30/22 02/04/25 Rx mg-hydrochlorothiazide 25 mg tablet .COMPLEX #90 tabs fluticasone propionate 50 See Rx Instructions .Route 04/21/23 02/04/25 Rx mcg/actuation nasal .COMPLEX #48 mL spray,suspension amlodipine 5 mg tablet See Rx Instructions .Route 05/06/23 02/04/25 Rx .COMPLEX #90 tabs atorvastatin 40 mg tablet See Rx Instructions .Route 05/06/23 02/04/25 Rx .COMPLEX #90 tabs cholecalciferol (vitamin D3) 50 100 mcg (2 x 50 mcg (2,000 unit)) 05/09/23 02/04/25 Rx mcg (2,000 unit) capsule PO DAILY #180 caps azelastine 137 mcg (0.1 %) nasal See Rx Instructions .Route 06/15/23 02/04/25 Rx spray .COMPLEX #30 mL famotidine 20 mg tablet (Acid 20 mg PO DAILY 01/21/25 02/04/25 History Controller) tirzepatide (weight loss) 2.5 2.5 mg subcut WEEKLY 01/21/25 02/04/25 History mg/0.5 mL subcutaneous pen injector (Zepbound) Allergies Allergy/AdvReac Type Severity Reaction Status Date / Time Sulfa (Sulfonamide Allergy Unknown Unknown Verified 01/21/25 15:01 Antibiotics) Vital Signs Vital Signs - 24 hr 02/04/25 09:22 Temperature 97.8 F Pulse Rate 87 Respiratory Rate 18 Blood Pressure 122/54 L Pulse Oximetry 100 Oxygen Delivery Room Air Exam Const: General: comfortable and no acute distress HENMT: Face/Nose/Sinus: Normal nares present Eyes: General: appearance normal, both eyes and all related structures Neck: Neck: no JVD Resp: Auscultation: clear to auscultation bilaterally Cardio: Rate: regular rate Rhythm: regular rhythm GI: Inspection: non-distended GI Palp: Yes Soft to palpation Skin: General skin exam: normal color Neuro: Speech: normal speech Extrem: General: normal to inspection Psych: Mental Status: mental status grossly normal Assessment and Plan Assessment and plan (1) Colon polyp: Code(s): K63.5 - Polyp of colon Status: Acute Assessment and Plan: colonoscopy
--- NOTE | 2025-02-04 10:25 | S_PTH ---
PATIENT: Boston Vicente I LOC: [facility]#:[id number] AGE/SX: 79/F ROOM: RE02/04/[address]: Saleem Martini MD : 1945 BED: DIS: 02/04/2025 SPEC #: [id number] RECD: 02/04/25 11:58 STATUS: TERESSA REQ #: [id number] MARIELLE: 02/04/25 10:[address]: Saleem Martini DEPT: [facility] Surgical RECD BY: Mirlande Byers ENTERED: 02/04/25 11:58 SP TYPE: Surgical OTHR DR: Manish Johnston MD Tissues: A - Colon Polypectomy Procedures: Hematoxylin and Eosin Stain Gross and Microscopic Level 4
[2025-02-04 10:28] VITALS: BP 93/38; PULSE 72; RESP 18; O2SAT 100
[2025-02-04 10:38] VITALS: BP 94/42; PULSE 71; RESP 18; O2SAT 100
[2025-02-04 10:48] VITALS: BP 101/40; PULSE 69; RESP 18; O2SAT 100
== END 2025-02-04 10:57 | disposition home or self-care (01) ==
PROVIDERS: PCP Emergency Medicine; Referring Provider Emergency Medicine; Visit Provider Internal Medicine Gastroenterology
PROC: 0DJD8ZZ Inspection of Lower Intestinal Tract, Via Natural or Artificial Opening Endoscopic (ICD-10-PCS; CPT 45378; principal; 2025-02-04 10:30)
DX: Z12.11 Encounter for screening for malignant neoplasm of colon (principal); D12.3 Benign neoplasm of transverse colon; E78.5 Hyperlipidemia, unspecified; I10 Essential (primary) hypertension; E55.9 Vitamin D deficiency, unspecified; R73.9 Hyperglycemia, unspecified; J45.909 Unspecified asthma, uncomplicated; F41.9 Anxiety disorder, unspecified; K21.9 Gastro-esophageal reflux disease without esophagitis; M17.11 Unilateral primary osteoarthritis, right knee; G89.29 Other chronic pain; M25.562 Pain in left knee; M25.561 Pain in right knee; E66.9 Obesity, unspecified; Z68.35 Body mass index [BMI] 35.0-35.9, adult; Z79.85 Long-term (current) use of injectable non-insulin antidiabetic drugs; Z98.890 Other specified postprocedural states; Z87.891 Personal history of nicotine dependence; Z82.49 Family history of ischemic heart disease and other diseases of the circulatory system
CPT/HCPCS: 45385; 88305; J2704; J7120